=== PATIENT | female | born 1985 | race Two or more races ===

== ENCOUNTER 2020-11-01 17:08 | Emergency (ER) | payer OTHER ==
[~2020-11-01] VITALS: Ht 152.4 cm; Wt 61.0 kg
[2020-11-01 18:40] VITALS: BP 121/89
--- NOTE | 2020-11-01 18:40 | ED.ADGEN ---
General Adult EDM: Chief Complaint: BURN/SMOKE INHALATION HPI: HPI: Patient is a 35 year old female with pruritic raised rash to bilateral forearms, left neck, and abdomen. Patient states the rash appeared after mowing and clearing weeds 2 days ago. Patient has been using [id number] topical antiitch medication without improvement. Denies any chemical exposure. No fever, nausea, vomiting or other systemic complaints. States he otherwise been well. No significant medical history for Review of Systems: Review of Systems: All other systems within normal limits except for as noted in the HPI Current Medications: Current Medications Medications (Trade) Dose Ordered Sig/Natasha Start Time Stop Time Status Last Admin Dose Admin Calamine (Calamine Lotion) 1 syed 1X PRN 11/01/20 18:45 UNV Diphenhydramine HCl (Benadryl) 50 mg 1X ONCE 11/01/20 18:45 11/01/20 18:46 UNV Methylprednisolone Sodium Succinate (SOLU-Medrol 125MG VIAL) 125 mg 1X ONCE 11/01/20 18:45 11/01/20 18:46 UNV Allergies: Allergies: Allergies Coded Allergies Type Severity Reaction Last Updated Verified No Known Drug Allergies 11/01/20 No Physical Exam: PE: Constitutional: Well developed, well nourished, no acute distress, non-toxic appearance. [] HENT: Normocephalic, atraumatic, bilateral external ears normal, nose normal. [] Eyes: PERRLA, conjunctiva normal, no discharge. [] Neck: No rigidity, supple, no stridor. [] Cardiovascular: Regular rate and rhythm, brisk cap refill [] Lungs & Thorax: Non labored symmetric respirations, no tachypnea or respiratory distress [] Abdomen: Soft, nondistended. Skin: Warm, papulovesicular rash with multiple areas of excoriation to forearms most prominent in antecubital fossa bilaterally, left neck, and linear streaks on right abdomen. No induration or drainage from Back: Unremarkable Extremities: No deformities, range of motion grossly intact, no lower extremity edema [] Neurologic: Alert and oriented X 3, no focal deficits noted. [] Psychologic: Affect normal, judgement normal, mood normal. [] EKG: EKG: [] Heart Score: C/O Chest Pain: No Risk Factors: Risk Factors: DM, Current or recent (<one month) smoker, HTN, HLP, family history of CAD, obesity. Risk Scores: Score 0 - 3: 2.5% MACE over next 6 weeks - Discharge Home Score 4 - 6: 20.3% MACE over next 6 weeks - Admit for Clinical Observation Score 7 - 10: 72.7% MACE over next 6 weeks - Early Invasive Strategies Radiology/Procedures: Radiology/Procedures: [] Course & Med Decision Making: Course & Med Decision Making Pertinent Labs and Imaging studies reviewed. (See chart for details) [] Dragon Disclaimer: Dragon Disclaimer: This electronic medical record was generated, in whole or in part, using a voice recognition dictation system. Departure Departure Impression: Primary Impression: Contact dermatitis and eczema due to plant Disposition: HOME / SELF CARE / HOMELESS Condition: STABLE Patient Instructions: Contact Dermatitis, [id number] Scripts Calamine/Zinc Oxide (HM CALAMINE LOTION) 177 Ml Lotion 1 SYED TP PRN TID PRN for Skin Protectant for 30 Days, #120 ML 0 Refills Prov: SKIP ISRAEL MD 11/01/20 Prednisone (PREDNISONE) 20 Mg Tablet 1 TAB PO UD for steroid for 12 Days, #24 TAB 60 mg x4 days, 40 mg x4 days, 20 mg x 4 days Prov: SKIP ISRAEL MD 11/01/20 Hydroxyzine Hcl (HYDROXYZINE HCL) 25 Mg Tablet 1 TAB PO TID PRN for ITCHING for 10 Days, #30 TAB Prov: SKIP ISRAEL MD 11/01/20 SKIP ISRAEL MD Nov 01, 2020 18:40
[2020-11-01] MEDS ORDERED: PRED20TA PO (18:44)
[2020-11-01] MEDS ORDERED: CALA177L13 TP (18:44)
[2020-11-01] MEDS ORDERED: HYDR25TA PO (18:44)
[2020-11-01] MEDS ORDERED: CALAMINE/ZINC OXIDE TOPICAL SUSPENSION 177ML BOTTLE. TP PRN (18:45)
[2020-11-01] MEDS ORDERED: diphenhydrAMINE 50 MG/ML VIAL IM ONE (18:45)
[2020-11-01] MEDS ORDERED: methylPREDNISolone SOD SUCC PF 125 MG/2 ML VIAL. IM ONE (18:45)
== END 2020-11-01 19:11 | disposition home or self-care (01) ==
LOC: ER 17:08
DX: L25.5 Unspecified contact dermatitis due to plants, except food (principal)
CPT/HCPCS: 96372; 99284; J1200; J2930